=== PATIENT | female | born 2000 | race Caucasian/White ===

== ENCOUNTER 2021-04-25 11:16 | Emergency (ER) | payer BC, SELFPAY ==
[2021-04-25 11:20] VITALS: BP 133/79; PULSE 100; RESP 16; TEMP 36.4; O2SAT 99
--- NOTE | 2021-04-25 11:41 | ED.NAVMDI ---
HPI - Nausea/Vomiting/Diarrhea General Chief complaint: Nausea/Vomiting/Diarrhea Stated complaint: n/v Time Seen by Provider: 04/25/21 11:40 Source: patient Mode of arrival: ambulatory Limitations: no limitations History of Present Illness HPI Narrative: Patient is a 20-year-old female with a history of gastrointestinal disorder and cholecystectomy in December 2020 presenting to the emergency department for evaluation of nausea, vomiting, diarrhea. Patient reports feeling unwell over the past 24 hours. Patient reports acute onset nausea, vomiting yesterday, diarrhea that developed overnight into this morning. Patient reports she has been unable to keep down any fluids. She reports watery diarrhea and sharp, stabbing pain in the center of her abdomen without radiation to the back. She reports the pain is in a bandlike pattern across the lower abdomen without lower pelvic pain. She denies dysuria, hematuria, reports she is currently menstruating. Denies history of sexual transmitted infection. Denies other vaginal discharge. Denies flank pain. Patient reports chills without fever. Patient denies rhinorrhea, congestion. Patient's friend present in the room, with whom she resides, similar symptoms yesterday but those symptoms resolved in 12 hours. Patient reports that her work-up for gastrointestinal disorder, has been unremarkable thus far but she does follow with a GI physician in [place]. Related Data Home Medications Medication Instructions Recorded Confirmed aripiprazole [Abilify] 20 mg PO DAILY 04/25/21 duloxetine 60 mg PO BID 04/25/21 quetiapine [Seroquel] 25 mg PO BID 04/25/21 quetiapine [Seroquel] 50 mg PO HS 04/25/21 Allergies Allergy/AdvReac Type Severity Reaction Status Date / Time aspirin Allergy Nausea and Verified 04/25/21 11:17 Vomiting Review of Systems Review of Systems: CONSTITUTIONAL: Denies fever, reports chills EYES: Denies visual changes, redness, or discharge. ENT: Denies rhinorrhea, congestion, sore throat, or otalgia. CARDIOVASCULAR: Denies chest pain, palpitations, or edema. RESPIRATORY: Denies cough or dyspnea. GASTROINTESTINAL: Reports abdominal pain, nausea, vomiting, diarrhea GENITOURINARY: Denies dysuria or hematuria. SKIN: Denies rash or itching. MUSCULOSKELETAL: Denies back pain, joint pain, or myalgia. NEUROLOGIC: Denies headache, numbness, or weakness. [facility] Social History Social History (Updated 04/25/21 @ 11:56 by Krys Vizcaino MD) Alcohol intake: never Substance use: never Gender identity (if verbalized by the patient): Female Exam Narrative: GENERAL: Awake, alert, conversant HEAD: Normocephalic, atraumatic. EYES: PERRLA and EOMI. ENT: Nares clear, no rhinorrhea or epistaxis. Mucous membranes moist. NECK: Supple. CHEST: No respiratory distress, breathing even and non labored HEART: Tachycardic rate, sinus rhythm ABDOMEN:Non distended, no significant tenderness on exam, nonrigid, no rebound, no guarding patient does report generalized discomfort throughout the exam EXTREMITIES: Normal range of motion. No edema. SKIN: Warm, dry, no rash. NEURO:No focal deficits. Alert and oriented x3 Course Vital Signs Vital signs: Vital Signs Temperature 36.4 C 04/25/21 11:20 Pulse Rate 100 04/25/21 11:20 Respiratory Rate 16 04/25/21 11:20 Blood Pressure 133/79 04/25/21 11:20 Pulse Oximetry 99 04/25/21 11:20 Temperature 36.4 C 04/25/21 11:20 Pulse Rate 108 H 04/25/21 12:02 Respiratory Rate 16 04/25/21 11:20 Blood Pressure 124/80 04/25/21 12:02 Pulse Oximetry 99 04/25/21 11:20 MDM - Nausea/Vomiting/Diarrhea MDM Narrative Medical decision making narrative: Patient presents emergency department for evaluation of nausea, vomiting, diarrhea. At the time of initial assessment, patient's abdomen is soft without significant pain or signs of surgical abdomen on serial exams. Lab and imaging evaluations are reviewed and pat
[2021-04-25 11:49] LABS: Basophils Percent Auto 0.4 % (0.2-1.2); Eosinophils Absolute Auto 0.3 K/mm3 (0-0.3); Eosinophils Percent Auto 5.5 % (0-4.4); Hematocrit 46.1 % (37.0-47.0); Hemoglobin 15.1 g/dL (12.0-15.0); Immature Granulocyte Absolute 0.01 K/mm3 (0.00-0.031); Immature Granulocyte Percent A 0.2 % (0-0.5); Lymphocytes Absolute Auto 0.91 K/mm3 (0.9-3.2); Lymphocytes Percent Auto 17.2 % (18.3-44.2); Mean Corpuscular HGB Conc 32.8 g/dl (32-36); Mean Corpuscular Hemoglobin 29.8 pg (26-34); Mean Corpuscular Volume 90.9 fl (80-100); Mean Platelet Volume 10.1 fl (7.4-10.4); Monocytes Absolute Auto 0.4 K/mm3 (0.1-0.6); Monocytes Percent Auto 7.8 % (2.6-8.5); Neutrophils Absolute Auto 3.6 K/mm3 (1.3-6.7); Neutrophils Percent Auto 68.9 % (45.5-73.1); Platelet Count Result 273 k/mm3 (150-375); Red Blood Count 5.07 M/mm3 (4.2-5.4); White Blood Count 5.3 K/mm3 (4.5-10.0)
[2021-04-25 11:58] VITALS: BP 124/72; PULSE 59
[2021-04-25 12:00] VITALS: BP 110/59; PULSE 74
[2021-04-25 12:01] LABS: Alanine Aminotransferase 18 U/L (4-35); Albumin Level 4.5 g/dL (3.5-5.1); Alkaline Phosphatase 72 U/L (38-126); Anion Gap 8 mmol/L (8-16); Aspartate Amino Transferase 25 U/L (14-36); Bilirubin,Total 0.9 mg/dL (0.2-1.3); Blood Urea Nitrogen 12 mg/dL (7-17); Calcium 8.8 mg/dL (8.4-10.2); Carbon Dioxide 24 mmol/L (22-30); Chloride 105 mmol/L (98-107); Estimated CRCL calculation 118 ml/min; Estimated Glomerular Filt Rate > 60; Glucose 108 mg/dL (65-110); Lipase 29 U/L (23-300); Potassium 3.8 mmol/L (3.4-5.0); Sodium 137 mmol/L (137-145)
[2021-04-25 12:02] VITALS: BP 124/80; PULSE 108
[2021-04-25] MEDS: ONDANSETRON INJ 4 MG/2 ML VIAL IV PUSH ×2 (12:03→13:30)
[2021-04-25] MEDS: FAMOTIDINE 20 MG/2 ML VIAL IV PUSH (12:03)
[2021-04-25] MEDS: DICYCLOMINE HCL INJ 20 MG/2 ML VIAL IM (12:03)
[2021-04-25] MEDS: SODIUM CHLORIDE 0.9% IV 1,000 ML 999 ML IV CONT (12:03)
[2021-04-25 13:26] LABS: Add Urine Microscopic? YES; Appearance Urine Cloudy (Clear); Bilirubin Urine Negative (Negative); Blood Urine 3+ (Negative); Color Urine Yellow (Yellow); Glucose Urine UA Negative (Negative); Ketones Urine Negative (Negative); Leukocyte Esterase Ur Negative LEU/UL (Negative); Mucus Urine Rare /lpf; Nitrate Urine Negative (Negative); Protein Urine 1+ mg/dL (Negative); RBC Urine >75 /hpf (0-2); Squamous Epithelial Cell Urine Few /hpf (Few); Urobilinogen Urine Negative mg/dL (<2.0)
[2021-04-25 13:56] VITALS: PULSE 68; RESP 16; O2SAT 100
== END 2021-04-25 13:57 | disposition home or self-care (01) ==
PROVIDERS: Emergency Provider Emergency Medicine
DX: K52.9 Noninfective gastroenteritis and colitis, unspecified (principal)
CPT/HCPCS: 36415; 80053; 81001; 81025; 83690; 85025; 87077; 87086; 87186; 96361; 96365; 96372; 96375; 96376; 99284; J0131; J0500; J2405; J7030

== ENCOUNTER 2021-09-08 10:01 | Emergency (ER) | payer OTHER, BC, SELFPAY ==
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
[2021-09-08 10:01] VITALS: BP 132/81; PULSE 77; RESP 14; TEMP 36.4; O2SAT 98
[2021-09-08 10:06] VITALS: BP 134/79; PULSE 81; RESP 18; O2SAT 100
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
--- NOTE | 2021-09-08 10:16 | PC.NURSE ---
pt in catscan at this time.
[2021-09-08 11:33] VITALS: BP 134/69; PULSE 78; RESP 19; O2SAT 100
== END 2021-09-08 11:35 | disposition home or self-care (01) ==
PROVIDERS: Emergency Provider Nurse Practitioner Family
DX: S06.0X0A Concussion without loss of consciousness, initial encounter (principal); V43.52XA Car driver injured in collision with other type car in traffic accident, initial encounter
CPT/HCPCS: 70450; 72125; 99284; L0140